=== PATIENT | male | born 1930 | race Asian ===

== ENCOUNTER 2019-07-01 11:20 | Emergency (ER) | payer OTHER ==
[2019-07-01 13:02] VITALS: BP 127/80
== END 2019-07-01 13:02 | disposition home or self-care (01) ==
LOC: ED 11:20
DX: M54.12 Radiculopathy, cervical region (principal); M50.322 Other cervical disc degeneration at C5-C6 level; M50.323 Other cervical disc degeneration at C6-C7 level; M46.82 Other specified inflammatory spondylopathies, cervical region; I10 Essential (primary) hypertension; E78.00 Pure hypercholesterolemia, unspecified

== ENCOUNTER 2020-08-18 10:07 | Emergency (ER) | payer OTHER ==
[~2020-08-18] VITALS: Ht 162.6 cm; Wt 82.6 kg
[2020-08-18 10:38] VITALS: Ht 162.6 cm; Wt 82.6 kg
[2020-08-18 14:52] VITALS: BP 125/83
== END 2020-08-18 14:53 | disposition home or self-care (01) ==
LOC: ED 10:07
DX: S22.41XA Multiple fractures of ribs, right side, initial encounter for closed fracture (principal); S92.501A Displaced unspecified fracture of right lesser toe(s), initial encounter for closed fracture; I10 Essential (primary) hypertension; E78.00 Pure hypercholesterolemia, unspecified; W18.39XA Other fall on same level, initial encounter; Y93.89 Activity, other specified; Y92.89 Other specified places as the place of occurrence of the external cause; Y99.8 Other external cause status